=== PATIENT | female | born 1965 | race African-American/Black ===

== ENCOUNTER 2018-10-23 08:58 | Inpatient (IN) | payer MEDICAID, OTHER ==
[~2018-10-23] VITALS: Ht 162.6 cm; Wt 70.0 kg
[2018-10-23] MEDS ORDERED: SODIUM CHLORIDE 0.9% 1,000 ML IV ONE (09:43)
[2018-10-23] MEDS ORDERED: ONDANSETRON HCL 4 MG/2 ML VIAL IV ONE ×2 (09:45→10:45)
[2018-10-23 10:30] LABS: Basophils # (auto) 0 uL; Basophils % (auto) 0.4 % (0.0-2.0); Eosinophils # (auto) 0 uL; Eosinophils % (auto) 0.6 % (0.0-7.0); Hematocrit 43.3 % (36.0-46.0); Hemoglobin 14.2 g/dL (12.2-16.2); Lymphocytes % (auto) 12.3 % (10.0-50.0); Mean Corpuscular Hemoglobin 32.5 pg (28.0-32.0); Mean Corpuscular Hgb Conc. 32.7 g/dL (32.0-36.0); Mean Corpuscular Volume 99.4 fL (80.0-100.0); Monocytes # (auto) 0.2 uL; Monocytes % (auto) 2.5 % (0.0-12.0); Neutrophils # (auto) 6.6 uL; Neutrophils % (auto) 84.2 % (37.0-80.0); Nucleated Red Blood Cells % 0.1 %; Platelet Count (auto) 227 10^3/uL (140-450); Red Blood Cells 4.35 10^6/uL (4.0-5.20); Red Cell Distribution Width 13.4 % (11.8-14.3); White Blood Cell 7.8 10^3/uL (4.4-10.8)
[2018-10-23] MEDS ORDERED: MORPHINE SULFATE 4 MG/ML SYR/VIAL IV ONE (10:45)
[2018-10-23] MEDS ORDERED: PIPERACILLIN-TAZOB 3.375GM 100 ML IV ONE (10:45)
[2018-10-23] MEDS ORDERED: NITROGLYCERIN 0.4 MG SL TAB SL PRN (11:15)
[2018-10-23] MEDS ORDERED: MORPHINE SULFATE 4 MG/ML SYR/VIAL IV PRN (11:15)
[2018-10-23 11:34] LABS: Lactic Acid w/Reflex 2.9 mmol/L (0.4-2.0)
[2018-10-23] MEDS ORDERED: ETOMIDATE (2MG/ML) 20ML VIAL IV ONE (11:42)
[2018-10-23] MEDS ORDERED: ROCURONIUM 10MG/ML 10ML VIAL IV ONE (11:42)
[2018-10-23] MEDS ORDERED: MORPHINE SULF(PF) 0.5MG/ML 10ML VIAL ONE (11:42)
[2018-10-23] MEDS ORDERED: fentaNYL CITRATE 10 ML ONE (11:42)
[2018-10-23] MEDS ORDERED: fentaNYL CITRATE 100 MCG/2 ML VL ONE (11:42)
[2018-10-23] MEDS ORDERED: MIDAZOLAM HCL 1MG/1ML-2 ML VIAL ONE (11:42)
[2018-10-23] MEDS ORDERED: SODIUM CHLORIDE LOCK 20 ML ONE (11:42)
[2018-10-23] MEDS ORDERED: MORPHINE SULFATE INJECTION 1 ML ONE (11:43)
[2018-10-23] MEDS ORDERED: NOREPINEPHRINE 8 MG/250ML KIT 250 ML IV ONE (11:43)
[2018-10-23] MEDS ORDERED: NOREPINEPHRINE 8 MG/250ML KIT 250 ML IV SCH (11:44)
[2018-10-23] MEDS ORDERED: PANTOPRAZOLE 40 MG/10 ML VIAL IV ONE (11:45)
[2018-10-23] MEDS ORDERED: LEVOFLOXACIN 750MG 150 ML IV ONE (11:45)
[2018-10-23 11:49] VITALS: BP 82/53
[2018-10-23 11:52] LABS: INR 0.99 (0.9-1.15); Prothrombin Time 10.6 sec (9.27-12.13)
[2018-10-23] MEDS ORDERED: POVIDONE IODINE 10 % TOPICAL OINT 30GM TOP ONE (13:24)
[2018-10-23] MEDS ORDERED: GLYCOPYRROLATE 0.2 MG/ML 1ML VIAL ONE (13:29)
[2018-10-23] MEDS ORDERED: NEOSTIGMINE 1 MG/ML INJ (10mg/10ML VIAL) ONE (13:29)
[2018-10-23] MEDS ORDERED: METOCLOPRAMIDE HCL 5MG/ml INJ 2ml VIAL IV ONE (14:15)
[2018-10-23] MEDS ORDERED: HYDROmorphone HCL 2 MG/ML VL IV PRN (14:15)
[2018-10-23 14:48] LABS: Alanine Aminotransferase 19 U/L (13-56); Albumin 3.3 g/dL (3.4-5.0); Alkaline Phosphatase 67 U/L (45-117); Anion Gap 12 (5-15); Aspartate Aminotransferase 22 U/L (15-37); Bilirubin, Total 0.4 mg/dL (0.2-1.0); Blood Urea Nitrogen 20 mg/dL (7-18); Calcium 8.6 mg/dL (8.5-10.1); Carbon Dioxide 19 mmol/L (21-32); Chloride 107 mmol/L (98-107); GFR African American 75 mL/min; GFR Non-African American 62 mL/min; Glucose 115 mg/dL (74-106); Potassium 3.3 mmol/L (3.5-5.1); Sodium 138 mmol/L (136-145); Total Protein 6.7 g/dL (6.4-8.2)
[2018-10-23 14:49] LABS: Magnesium 2.5 mg/dL (1.6-2.6)
--- NOTE | 2018-10-23 18:03 | NUR ---
MS admit from [facility] MOISES [facility] admitted to tele/MS after SBAR received.Patient status postabdominal perforation. Patient oriented to JANIS COHEN, primary RN, unit, room, bed, and unit policies regarding patient care and visiting hours. Patient weighed by bedscale and encouraged to call if they need something.NG TUBE on low continuous suction; tube placed deeper than typical per SERVICENOW ADMINISTRATOR Dr Hadley placed the tube beyond the perforation, tube marked with a black pen. Dressing to mid abdomen clean dry and intact with a GREG drain with serosanguenous drainage.All questions and concerns addressed, patient verbalized understanding.
[2018-10-23] MEDS: SODIUM CHLORIDE 0.9% 1,000 ML IV SCH (18:53)
[2018-10-23] MEDS: metroNIDAZOLE 500MG/100ML 100 ML IV SCH ×2 (18:53→23:54)
--- NOTE | 2018-10-23 19:30 | NUR ---
ENDORSED CARE TO NIGHT MAGDALENA CUMMINGS
--- NOTE | 2018-10-23 19:35 | NUR ---
Opening Shift Note Received report from Hilario NICHOLS. Assumed care of patient, awake and alert. No S/S of distress/SOB, with post op pain at 6/10. NGT on R nares to LCS with minimal output. Medial abdominal incision dressing c/d/i. GREG on RLQ draining moderate serosanguineous fluid. Patient still NPO. Instructed on POC and to call for assist PRN, will continue to monitor for changes Q1hr and PRN.
[2018-10-23 20:00] VITALS: BP 118/75
[2018-10-23 21:30] VITALS: BP 118/70
[2018-10-23] MEDS: PANTOPRAZOLE 40 MG/10 ML VIAL IV SCH (21:35)
--- NOTE | 2018-10-23 22:44 | NUR ---
Respiratory note: PT SEEN AND ASSESSED FOR PRN MED NEB TX AT 2244. TX NOT INDICATED AT THIS TIME. NO SIGNS OF DISTRESS OR SOB NOTED. PTS ONLY COMPLAINT WAS THAT HER MOUTH WAS DRY. HR 81 RR 18 POX 100% ON 2L NASAL CANNULA. PT AWARE TO CALL FOR RT IF ANY DISTRESS OCCURS.
[2018-10-24] VITALS (7 sets, daily range): BP systolic 109–143; BP diastolic 67–82
[2018-10-24] MEDS: SODIUM CHLORIDE 0.9% 1,000 ML IV SCH ×3 (03:10→18:12)
[2018-10-24] MEDS: MORPHINE SULFATE 4 MG/ML SYR/VIAL IV PRN ×5 (06:09→23:31)
[2018-10-24] MEDS: metroNIDAZOLE 500MG/100ML 100 ML IV SCH ×4 (06:09→23:31)
--- NOTE | 2018-10-24 06:09 | NUR ---
Morphine IV given for post op pain 03/24, continue care.
[2018-10-24 06:48] LABS: INR 1.24 (0.9-1.15); Partial Thromboplastin Time 28.6 sec (23.78-33.04); Prothrombin Time 13.1 sec (9.27-12.13)
[2018-10-24 06:49] LABS: Potassium 3.9 mmol/L (3.5-5.1)
--- NOTE | 2018-10-24 06:54 | NUR ---
Respiratory note: HR 74, RR 16, SPO2 96% ON 2 L NC, BS CLEAR. PRN [place] TX NOT INDICATED AT THIS TIME. PT INFORMED TO HIT CALL LIGHT IF FEELING SOB OR WHEEZING.
[2018-10-24 07:01] LABS: Albumin 2.4 g/dL (3.4-5.0); BUN/Creatinine Ratio 23.3; Bilirubin, Total 0.4 mg/dL (0.2-1.0); Magnesium 2.2 mg/dL (1.6-2.6); Total Protein 5.8 g/dL (6.4-8.2)
--- NOTE | 2018-10-24 07:30 | NUR ---
Opening Shift Note Assumed care of patient Sleeping and aroused easily. No S/S of distress/SOB. Pain reported to abdomen, especially when trying to move. Will continue to monitor for changes Q1hr and PRN.
[2018-10-24] MEDS: PANTOPRAZOLE 40 MG/10 ML VIAL IV SCH ×2 (09:57→21:33)
--- NOTE | 2018-10-24 11:30 | NUR ---
SPOKE WITH FAMILY MEMBER ASHLEY. UPDATE ON PATIENT GIVEN. SHE INFORMED ME THAT THE PATIENT WASCALLING HER AND SAYING SHE WAS IN PAIN AND THAT WE WERENT DOING ANYTHING FOR HER. I ASSURED HER THAT WE ARE KEEPING AN EYE ON HER AND HER PAIN IS BEING TREATED WITH MEDICATION. WE AGREED THAT WE MAY NEE TO AUGMENT HER PAIN MANAGEMENT. I WILL INFORM THE DOCTOR WHEN HE ROUNDS.
[2018-10-24] MEDS: LEVOFLOXACIN 750MG 150 ML IV SCH (18:12)
--- NOTE | 2018-10-24 19:15 | NUR ---
Opening Shift Note Received report from Juanjose NICHOLS. Assumed care of patient, awake and alert. No S/S of distress/SOB, in moderate post op pain. Instructed on POC and to call for assist PRN, will continue to monitor for changes Q1hr and PRN.
--- NOTE | 2018-10-24 22:08 | NUR ---
Respiratory note: PT SEEN AND ASSESSED FOR PRN MED NEB TX AT 2208. TX NOT INDICATED AT THIS TIME. PT DISPLAYING NO SIGNS OF DISTRESS, SHE WAS SLEEPING WHEN ENTERING THE ROOM. HR 74 RR 18 POX 94% ON ROOM AIR. PT AWARE TO CALL FOR RT IF ANY DISTRESS OCCURS.
[2018-10-25] MEDS: SODIUM CHLORIDE 0.9% 1,000 ML IV SCH ×4 (02:30→23:48)
[2018-10-25 05:00] VITALS: BP 159/93
[2018-10-25] MEDS: MORPHINE SULFATE 4 MG/ML SYR/VIAL IV PRN ×3 (06:12→20:10)
[2018-10-25] MEDS: metroNIDAZOLE 500MG/100ML 100 ML IV SCH ×4 (06:12→23:45)
--- NOTE | 2018-10-25 07:20 | NUR ---
Patient still with moderate post op pain. Drained 300ml of serosanguineous fluid from GREG. Educated on the use of IS. Endorsed care to Kendra NICHOLS.
--- NOTE | 2018-10-25 07:40 | NUR ---
opening patient asleep in bed, bed in lowest position, call light within reach. No distress noted at this time currently PT 13.10 INR 1.24 potassium 3.9* wbc 7.8 rbc 4.35 albumin 2.4 per noc nurse gabrielle repaired perforation, current has ngt on low intermittent suction, patient is currently npo blood cultures are negative will f/u with morning assessment
--- NOTE | 2018-10-25 08:10 | NUR ---
Respiratory note: PRN MEDNEB TX CHECK. PT IN NO RESPIRATORY DISTRESS. SPO2 97% ON 2 L NC, HR 86 RR 18, B/S CLEAR/DIMINISHED. PT AWARE TO CALL RN AND HAVE THEM PAGE RT IF THEY BECOME SOB.
[2018-10-25 08:20] VITALS: BP 141/75
[2018-10-25] MEDS: PANTOPRAZOLE 40 MG/10 ML VIAL IV SCH ×2 (11:18→21:41)
[2018-10-25] MEDS: LEVOFLOXACIN 750MG 150 ML IV SCH (11:18)
--- NOTE | 2018-10-25 11:37 | NUR ---
md adame rounding
[2018-10-25 12:44] VITALS: BP 140/84
--- NOTE | 2018-10-25 13:16 | NUR ---
md anthony paged
[2018-10-25] MEDS ORDERED: GASTROGRAFIN 120 ML SOL ONE (14:27)
[2018-10-25] MEDS ORDERED: EZ-GAS II GRANULES (RADIOLOGY USE) PO ONE (14:33)
--- NOTE | 2018-10-25 15:00 | NUR ---
radiology series for upper gi using esophagus gastrografin swallow eval
--- NOTE | 2018-10-25 15:15 | NUR ---
Nutrition Assessment Notes please see attached link for complete assessment Est. Needs BW [id number] kcal (23-25 kcal/kgBW), 68-81 gms pro (1.0-1.2gms/kgBW). Will continue to monitor pertinent labs and reassess nutrient needs prn Addendum: 10/25/18 at [address] Amended: Links added.
[2018-10-25 16:57] VITALS: BP 145/95
--- NOTE | 2018-10-25 19:00 | NUR ---
zuleyma drained 175 drainage serosanguinous
--- NOTE | 2018-10-25 19:00 | NUR ---
ngt 200 mL removed dark green liquid
--- NOTE | 2018-10-25 22:17 | NUR ---
Respiratory note: PT SEEN AND ASSESSED FOR PRN MED NEB TX AT 2217. TX NOT INDICATED AT THIS TIME. PT STATED THAT HER BREATHING FEELS OKAY RIGHT NOW. NO DISTRESS NOTED. BREATH SOUNDS WERE DIMINISHED BILATERALLY. HR 83 RR 18 POX 98% ON 2L NASAL CANNULA. PT AWARE TO CALL FOR RT IF ANY DISTRESS OCCURS.
[2018-10-25 23:10] VITALS: BP 137/77
[2018-10-26] MEDS: MORPHINE SULFATE 4 MG/ML SYR/VIAL IV PRN ×2 (03:55→20:24)
[2018-10-26 04:33] VITALS: BP 160/96
[2018-10-26] MEDS: metroNIDAZOLE 500MG/100ML 100 ML IV SCH ×3 (06:01→17:35)
--- NOTE | 2018-10-26 08:00 | NUR ---
Opening Shift Note Assumed care of patient, awake and alert. No S/S of distress. Instructed on POC and to call for assist PRN, will continue to monitor for changes Q1hr and PRN. Instructed patient that she can contact the nurse directly on the extension written on the white board.
[2018-10-26 09:00] VITALS: BP 150/94
[2018-10-26] MEDS: ONDANSETRON HCL 4 MG/2 ML VIAL IV PRN (09:51)
[2018-10-26] MEDS: LEVOFLOXACIN 750MG 150 ML IV SCH (09:51)
[2018-10-26] MEDS: PANTOPRAZOLE 40 MG/10 ML VIAL IV SCH ×2 (09:51→20:23)
--- NOTE | 2018-10-26 09:51 | NUR ---
Patient reported that she vomited, noted green stuff in the chux, patient states it is her vomitus. Patient medicated per doctor's order.
--- NOTE | 2018-10-26 09:52 | NUR ---
Patient reported that she had a bowel movement.
--- NOTE | 2018-10-26 10:16 | NUR ---
PATIENT'S BOWEL MOVEMENT IS LOOSE AND DARK COLORED PER TOPPIECE CHOPPER REPORT.
--- NOTE | 2018-10-26 10:46 | NUR ---
Respiratory note: ASSESSED PT FOR PRN MEDNEB TX. HR 67, RR 14, POX 98% ON 2L NC. BREATH SOUNDS CLEAR DIMINISHED THROUGHOUT. NO S/S OF RESPIRATORY DISTRESS. PT STATES SHE IS NOT FEELING ANY SOB. MEDNEB TX NOT INDICATED AT THIS TIME. ADVISED PT TO CALL FOR RT IF FEELING ANY SOB/DISTRESS.
[2018-10-26] MEDS: SODIUM CHLORIDE 0.9% 1,000 ML IV SCH ×2 (12:50→17:35)
[2018-10-26 13:00] VITALS: BP_SYST 135; BP_SYST 137; BP_DIAS 79; BP_DIAS 85
[2018-10-26 13:10] VITALS: BP 150/94
--- NOTE | 2018-10-26 13:57 | NUR ---
Called Dr. Villasenor, asked him if okay to remove NGT. Dr. Villasenor states NGT can be removed and can have clear liquid diet.
--- NOTE | 2018-10-26 14:00 | NUR ---
Care endorsed to MAGDALENA Pride.
--- NOTE | 2018-10-26 14:10 | NUR ---
NGT removal NGT removed per MD/AUTO TECHNICIAN MECHANIC order following explanation and instruction to patient. Patient verbalized understanding prior to removal. Patient tolerated well.
--- NOTE | 2018-10-26 14:10 | NUR ---
Received a report from KIKI NICHOLS.
--- NOTE | 2018-10-26 18:31 | NUR ---
Empty 45 drainage of serosanguineous.
--- NOTE | 2018-10-26 20:50 | NUR ---
Respiratory note: PT ASSESSED FOR PRN MED NEB TX. PT DENIES ANY SOB AT THIS TIME. POX 95% ON 2L, HR 70, RR 16. B/S ARE CLEAR/DIM. PT INFORMED TO HAVE RT PAGED IF NEEDED.
[2018-10-26 22:00] VITALS: BP 129/73
--- NOTE | 2018-10-27 00:19 | NUR ---
GREG DRAIN (from abdomen): 30 ml serosanguineous
[2018-10-27] MEDS: SODIUM CHLORIDE 0.9% 1,000 ML IV SCH ×4 (00:55→22:15)
[2018-10-27] MEDS: metroNIDAZOLE 500MG/100ML 100 ML IV SCH ×4 (00:55→18:08)
[2018-10-27 05:00] VITALS: BP 138/69
[2018-10-27 05:38] LABS: Basophils # (auto) 0 uL; Basophils % (auto) 0.3 % (0.0-2.0); Eosinophils # (auto) 0.1 uL; Eosinophils % (auto) 0.9 % (0.0-7.0); Hematocrit 32.6 % (36.0-46.0); Hemoglobin 10.7 g/dL (12.2-16.2); Lymphocytes # (auto) 1.4 uL; Mean Corpuscular Hemoglobin 32.3 pg (28.0-32.0); Mean Corpuscular Volume 97.9 fL (80.0-100.0); Monocytes % (auto) 6.7 % (0.0-12.0); Neutrophils # (auto) 11.7 uL; Neutrophils % (auto) 82.1 % (37.0-80.0); Nucleated Red Blood Cells % 0.1 %; Platelet Count (auto) 259 10^3/uL (140-450); Red Blood Cells 3.33 10^6/uL (4.0-5.20); Red Cell Distribution Width 13.7 % (11.8-14.3); White Blood Cell 14.3 10^3/uL (4.4-10.8)
[2018-10-27 06:47] LABS: Sodium 147 mmol/L (136-145)
[2018-10-27 06:48] LABS: Anion Gap 8 (5-15); Blood Urea Nitrogen 18 mg/dL (7-18); Carbon Dioxide 24 mmol/L (21-32); Chloride 115 mmol/L (98-107); Glucose 84 mg/dL (74-106)
[2018-10-27 06:49] LABS: BUN/Creatinine Ratio 37.5; Calcium 7.9 mg/dL (8.5-10.1); GFR African American 175 mL/min; GFR Non-African American 144 mL/min; Magnesium 2.5 mg/dL (1.6-2.6); Potassium 2.7 mmol/L (3.5-5.1)
--- NOTE | 2018-10-27 06:57 | NUR ---
CRITICAL LAB: NOTIFIED BY LAB POTASSIUM 2.7, CALLED HOSPITALIST AWAITING CALL BACK.
[2018-10-27] MEDS ORDERED: POTASSIUM EFFERVESENT TAB 25 MEQ PO ONE (07:15)
--- NOTE | 2018-10-27 07:50 | NUR ---
Opening Shift Note Assumed care of patient, awake and alert. No S/S of distress. Instructed on POC and to call for assist PRN, will continue to monitor for changes Q1hr and PRN.
--- NOTE | 2018-10-27 08:30 | NUR ---
Patient had a bowel movement. Patient was wiped and linen changed. Patient transferred from commode to bed independently. All needs provided.
[2018-10-27] MEDS: PANTOPRAZOLE 40 MG/10 ML VIAL IV SCH ×2 (08:57→20:12)
[2018-10-27] MEDS: ONDANSETRON HCL 4 MG/2 ML VIAL IV PRN ×2 (08:57→20:15)
[2018-10-27 09:00] VITALS: BP 141/85
--- NOTE | 2018-10-27 10:40 | NUR ---
Patient moved to 271A.
[2018-10-27] MEDS: LEVOFLOXACIN 750MG 150 ML IV SCH (10:51)
[2018-10-27 13:00] VITALS: BP 138/74
--- NOTE | 2018-10-27 15:31 | NUR ---
Nutrition Follow-up Notes Wt.: 70.2 kg Pt was sleeping with no family by bedside. per records pt s/p sx for perforated DU. per nursing pt with no distress noted. pt is now advanced to clear liq diet with no PO recorded yet as recently advanced Est. Needs BW [id number] kcal (23-25 kcal/kgBW), 68-81 gms pro (1.0-1.2gms/kgBW). Will continue to monitor pertinent labs and reassess nutrient needs prn Labs: CA 7.9 L, K 2.7 L. Skin: Messi scale 17, mod risk, incision on medial abdomen per slipman. GI: Pt had 2 BM today per slipman. PES: Inadequate PO intake r/t current medical condition aeb pt`s post DU sx and NPO Altered nutrition related lab values r/t current/chronic medical condition aeb hypocalcemia, mod hypoalb Will continue to monitor PO intake, skin status, pertinent labs and weight trend. F/u in 2 to 3 days. Rec.: 1.) advance diet as medically feasible. 2) continue current plan of care
[2018-10-27] MEDS: ALBUTEROL SULF 2.5 MG/0.5ML(0.5%) NEB SOLN NEB PRN (16:45)
[2018-10-27] MEDS: IPRATROPIUM BROM 0.5 MG/2.5ML INH SOL NEB PRN (16:45)
[2018-10-27 17:00] VITALS: BP 155/80
--- NOTE | 2018-10-27 18:40 | NUR ---
GREG DRAIN OUTPUT: 75 ML SEROSANGUINEOUS FLUID.
--- NOTE | 2018-10-27 19:00 | NUR ---
Closing note Patient resting in bed, no signs of distress noted.
--- NOTE | 2018-10-27 19:30 | NUR ---
Received patient sitting on the bedside commode. Loose stool noted. IV fluids infusing. GREG drain in place to abdomen. Delgado catheter in place draining dark vanessa urine.
[2018-10-27] MEDS: MORPHINE SULFATE 4 MG/ML SYR/VIAL IV PRN (20:17)
--- NOTE | 2018-10-27 21:00 | NUR ---
Patient c/o not feeling well after Morphine 3mg IV given, c/o nausea, headache, body aches. Patient said she will not take Morphine for pain due to adverse reaction.
[2018-10-27 22:30] VITALS: BP 150/93
[2018-10-28] MEDS: SOD CHL 0.9%/ KCL 40MEQ 1,000 ML IV SCH ×3 (00:17→22:55)
[2018-10-28] MEDS: metroNIDAZOLE 500MG/100ML 100 ML IV SCH ×5 (00:20→23:47)
[2018-10-28 05:30] VITALS: BP 162/80
--- NOTE | 2018-10-28 05:39 | NUR ---
GREG DRAIN OUTPUT: 60ML/ 12 HRS SEROUS
--- NOTE | 2018-10-28 05:42 | NUR ---
IV insertion IV access obtained, via clean sterile technique by inserting #20 gauge catheter at RIGHT HAND. IV secured properly. No trauma to site. Patient tolerated well. IV removal IV DC'd TO RIGHT FOREARM with clean sterile technique, catheter fully intact. Pressure dressing applied to site. Patient tolerated well.
--- NOTE | 2018-10-28 06:18 | NUR ---
CRITICAL POTASSIUM 2.7, CALLED HOSPITALIST WITH NEW ORDER TO GIVE POTASSIUM 40 MEQ PO X1.
[2018-10-28] MEDS ORDERED: POTASSIUM EFFERVESENT TAB 25 MEQ PO ONE (06:30)
--- NOTE | 2018-10-28 07:30 | NUR ---
OPENING SHIFT NOTE: Received report from NOC RN, Dodie. Assumed care of patient. Patient resting in bed, denies pain. Bed in lowest position, rails x2 up and call light within reach. Patient still with full liquid diet, educated patient about advance diet if patient tolerates breakfast tray. Updated on plan of care. Will continue to monitor.
[2018-10-28 09:00] VITALS: BP 150/81
[2018-10-28] MEDS: PANTOPRAZOLE 40 MG/10 ML VIAL IV SCH ×2 (10:30→22:00)
[2018-10-28] MEDS: LEVOFLOXACIN 750MG 150 ML IV SCH (10:30)
[2018-10-28] MEDS: IPRATROPIUM BROM 0.5 MG/2.5ML INH SOL NEB PRN (12:47)
[2018-10-28] MEDS: ALBUTEROL SULF 2.5 MG/0.5ML(0.5%) NEB SOLN NEB PRN (12:47)
[2018-10-28 12:53] VITALS: BP 155/83
--- NOTE | 2018-10-28 14:44 | NUR ---
MD: Dr Daniels to see patient. Orders received.
[2018-10-28] MEDS ORDERED: POTASSIUM CHL 20 Meq TABLET PO ONE (16:00)
[2018-10-28 16:51] VITALS: BP 143/79
--- NOTE | 2018-10-28 19:05 | NUR ---
CLOSING SHIFT NOTE: Report given to [facility] RNs, Crystal. Endorsed care of patient.
--- NOTE | 2018-10-28 19:08 | NUR ---
PRN MED NEB ASSESSMENT. NO DISTRESS NOTED AT THIS TIME. PT DENIES SOB. HR 58 RR 18 POX 99% ON RA TX NOT GIVEN.
--- NOTE | 2018-10-28 19:20 | NUR ---
Opening Shift Note Assumed care of patient, awake and alert. No S/S of distress/SOB but does c/o abdominal pain and gas. She refuses any pain medication. Instructed on POC and to call for assist PRN, will continue to monitor for changes Q1hr and PRN.
[2018-10-28] MEDS: ONDANSETRON HCL 4 MG/2 ML VIAL IV PRN (20:04)
[2018-10-28 21:59] VITALS: BP 154/86
--- NOTE | 2018-10-28 22:44 | NUR ---
GREG DRAIN OUTPUT: 25 ML DRAINED - SEROUS
[2018-10-29] MEDS: SOD CHL 0.9%/ KCL 40MEQ 1,000 ML IV SCH ×2 (05:15→15:15)
[2018-10-29 05:30] VITALS: BP 156/92
[2018-10-29] MEDS: metroNIDAZOLE 500MG/100ML 100 ML IV SCH ×2 (06:06→12:00)
--- NOTE | 2018-10-29 07:20 | NUR ---
Respiratory note: ASSESSED PT FOR PRN MEDNEB TX. HR 63, RR 18, POX 95% ON ROOM AIR. BREATH SOUNDS CLEAR, DIMINISHED TOWARDS BASES. PT STATES HER BREATHING FEELS FINE. NO S/S OF RESPIRATORY DISTRESS. ADVISED PT TO CALL FOR RT IF FEELING SOB/DISTRESS.
--- NOTE | 2018-10-29 07:30 | NUR ---
OPENING SHIFT NOTE: Received report from [facility] RNs, Crystal. Assumed care of patient. Patient resting in bed, denies pain. Bed in lowest position, rails x2 up and call light within reach. Patient still with full liquid diet, educated patient about advance diet if patient tolerates breakfast tray. Updated on plan of care. Will continue to monitor.
--- NOTE | 2018-10-29 09:00 | NUR ---
DIET: Patient tolerated breakfast full liquid diet. Denies any N/V. Will advance lunch to soft diet.
--- NOTE | 2018-10-29 09:30 | NUR ---
MD: Dr Daniels to see patient.
[2018-10-29 09:49] VITALS: BP 150/89
[2018-10-29] MEDS: PANTOPRAZOLE 40 MG/10 ML VIAL IV SCH (10:00)
[2018-10-29] MEDS: LEVOFLOXACIN 750MG 150 ML IV SCH (10:00)
--- NOTE | 2018-10-29 11:29 | NUR ---
CHAUDHARY: Chaudhary catheter removed intact. 400ml UOP noted in bag. Patient tolerated well. Educated patient about due to void.
[2018-10-29 11:40] VITALS: BP 150/89
[2018-10-29 13:00] VITALS: BP 145/70
[2018-10-29 15:01] VITALS: BP 142/76
--- NOTE | 2018-10-29 15:43 | NUR ---
DISCHARGE: Discharge instructions given as ordered. Encourage to follow up with PMD and Dr Villasenor as instructed. All questions and concerns addressed. Patient verbalized understanding. Medication reconciliation form completed and copy given to patient. IV removed with catheter intact, pressure dressing applied. Patient educated on how to drain GREG drain and how to change abdominal incision dressing. Patient taken to vehicle via wheelchair with all personal belongings, accompanied by staff and family member. No distress noted at time of departure.
== END 2018-10-29 17:00 | disposition home or self-care (01) | DRG 223 ==
LOC: EDBD 08:58 → ER 08:58 → DOU 10:42 → WEST WING 17:44
PROVIDERS: ADMIT Nurse Practitioner Acute Care; ATTEND Internal Medicine Pulmonary Disease
PROC: 0DU907Z Supplement Duodenum with Autologous Tissue Substitute, Open Approach (ICD-10-PCS; principal; 2018-10-23 12:28)
DX: K26.5 Chronic or unspecified duodenal ulcer with perforation (principal); E43 Unspecified severe protein-calorie malnutrition; J44.9 Chronic obstructive pulmonary disease, unspecified; E87.6 Hypokalemia; F17.210 Nicotine dependence, cigarettes, uncomplicated; Z68.26 Body mass index [BMI] 26.0-26.9, adult
CPT/HCPCS: 36415; 71045; 74176; 74247; 80048; 80053; 80061; 83605; 83735; 84132; 84443; 84484; 84702; 85025; 85610; 85730; 86850; 86900; 86901; 87040; 93005; 94640; 96374; 96375; 97116; 97163; 97530; C9113; G0378; J1956; J2250; J2405; J2543; J3490